=== PATIENT | female | born 1985 | race Caucasian/White ===

== ENCOUNTER 2018-09-06 10:02 | Emergency (ER) | payer BC ==
[~2018-09-06] VITALS: Ht 160 cm; Wt 55.9 kg
[2018-09-06 10:10] VITALS: BP 117/58; PULSE 70; RESP 18; Ht 160 cm; Wt 55.9 kg
[2018-09-06] MEDS ORDERED: CYCL10TA7 PO (11:48)
--- NOTE | 2018-09-06 18:06 | ERD ---
ER Documentation Chief Complaint Chief Complaint dizziness, neck pain, blurry vision after falling off horse thursday 10am HPI 33-year-old female presents with complaint of neck pain, rib pain, dizziness, and blurry vision after falling off a horse last Thursday. Patient denies any fevers. Patient is ambulatory. Patient denies shortness of breath, back pain, palpitations, dyspnea, loss of consciousness, amnesia, vomiting, severe headache, numbness, weakness. ROS All systems reviewed and are negative except as per history of present illness. Medications Home Meds Active Scripts Cyclobenzaprine Hcl* (Cyclobenzaprine Hcl*) 10 Mg Tablet, 10 MG PO TID, #15 TAB Prov:CAROL BLUNT 09/06/18 Allergies Allergies: Coded Allergies: No Known Allergy (Unverified , 09/06/18) PMhx/Soc Medical and Surgical Hx: pt denies Medical Hx, pt denies Surgical Hx Hx Alcohol Use: No Hx Substance Use: No Hx Tobacco Use: No FmHx Family History: No diabetes, No coronary disease, No other Physical Exam Vitals Vital Signs Date Temp Pulse Resp B/P (MAP) Pulse Ox O2 O2 Flow FiO2 Time Delivery Rate 09/06/18 98.2 70 18 117/58 98 10:10 (77) Physical Exam Const: No acute distress Head: Atraumatic Eyes: Normal Conjunctiva. PERRLA ENT: Normal External Ears, Nose and Mouth. Full range of motion of the neck with no midline cervical tenderness. Possible deformities noted. Neck: Full range of motion. No meningismus. Resp: Clear to auscultation bilaterally Cardio: Regular rate and rhythm, no murmurs Abd: Soft, non tender, non distended. Normal bowel sounds Skin: No petechiae or rashes Back: No midline or flank tenderness. Motion of back with no bony deformity or tenderness. Ext: No cyanosis, or edema. 5 out of 5 strength in upper and lower extremities. Distal pulses intact. Distal sensation intact. Neur: Awake and alert Psych: Normal Mood and Affect Neuro: M/S: Alert and oriented Face: EOMI, face and pharynx with normal sensation and function Motor: Normal strength throughout Sensation: Normal sensation throughout Speech: Normal Cerebel: Normal coordination Normal gait Normal finger to nose DTR: 2+ and symmetric upper/lower extremities Results 24 hrs Laboratory Tests Test 09/06/18 11:28 POC Beta HCG, Qualitative NEGATIVE Procedures/MDM MDM: Patient did not meet [place] criteria for head CT and ordered she did not meet [place] C-spine criteria for C-spine CT. Cervical x-rays performed results within normal limits. Rib series was performed and results within n ormal limits. Patient's neuro exam was complete within normal limits patients with no sign of neck or back fracture. Patient most likely suffering from concussion. Patient was advised to follow-up with neurology and refrain from activities that exacerbate her symptoms.. I have low suspicion for intracranial hemorrhage, cranial fracture, elevated intracranial pressure, intracranial mass, aneurysm, meningitis, malignant hypertension, giant cell arteritis, carotid dissection, intracranial abscess, cerebral venous thrombosis, CO2 poisoning, or other emergent causes of headache based on patients history and exam. At this time, patient is stable for discharge and outpatient management. I have instructed the patient to follow-up with his/her primary care physician in 1-2 days. I have discussed with the patient the possibility of needing to see a specialist for further workup and imaging studies if symptoms persist. I have instructed the patient to promptly return to the ER for any new or worsening symptoms including but not limited to increased pain, fever, nausea, vomiting, weakness or LOC. The patient and/or family expressed understanding of and agreement with this plan. All questions were answered. Home care instructions were provided. DISCLAIMER: Inadvertent spelling and grammatical errors are likely due to EHR/dictation software use and do not reflect on the overall quality of patient care. Also, please note that the electronic time recorded on this note does not necessarily reflect the actual time of the patient encounter. Departure Diagnosis: Primary Impression: Neck strain Additional Impressions: Head injury due to trauma Rib pain Condition: Stable Patient Instructions: HEAD INJURY, No Wake-Up (Adult), Neck Sprain/Strain, Rib Contusion Referrals: KYRA PIKE MD, IRA CHUGH, DEEPAK K MD FANALE, CHRISTOPHER V. MD Additional Instructions: FOLLOW UP WITH YOUR PRIMARY CARE PHYSICIAN TOMORROW.Return to this facility if you are not improving as expected. CAROL BLUNT Sep 06, 2018 18:06
== END 2018-09-06 12:21 | disposition home or self-care (01) ==
LOC: FTE 10:02
DX: S16.1XXA Strain of muscle, fascia and tendon at neck level, initial encounter (principal); S09.90XA Unspecified injury of head, initial encounter; S29.9XXA Unspecified injury of thorax, initial encounter; V80.010A Animal-rider injured by fall from or being thrown from horse in noncollision accident, initial encounter
CPT/HCPCS: 71100; 72040; 81025